=== PATIENT | male | born 1950 | race Caucasian/White ===

== ENCOUNTER 2021-03-22 06:04 | Day surgery (SDC) | payer MEDICARE, BC ==
[2021-03-17 11:03] LABS: BASOPHILS % (AUTO) 0.2 % (0-1); EOSINOPHILS # (AUTO) 0.1 X10'3 (0-0.9); LYMPHOCYTES # (AUTO) 1.6 X10'3 (1.1-4.8); LYMPHOCYTES % (AUTO) 23.1 % (21-51); MEAN CORPUSCULAR HEMOGLOBIN 30.6 PG (27.0-31.0); MEAN CORPUSCULAR VOLUME 87.4 FL (78-98); MEAN PLATELET VOLUME 7.5 FL (7.4-10.4); MONOCYTES # (AUTO) 0.6 X10'3 (0-0.9); MONOCYTES % (AUTO) 9.1 % (2-12); NEUTROPHILS # (AUTO) 4.7 X10'3 (1.8-7.7); NEUTROPHILS % (AUTO) 66.6 % (42-75); PRE OP HEMATOCRIT 39.7 % (42.0-52.0); PRE OP HEMOGLOBIN 13.9 g/dL (14.0-17.9); PRE OP PLATELET COUNT 248 X10'3 (140-440); RED BLOOD COUNT 4.54 X10'6 (4.70-6.10); RED CELL DISTRIBUTION WIDTH 12.8 % (11.5-14.5)
[2021-03-17 11:16] LABS: ALBUMIN 3.4 G/DL (3.4-5.0); ALBUMIN/GLOBULIN RATIO 0.9 (1.1-1.5); ALKALINE PHOSPHATASE 75 IU/L (46-116); BLOOD UREA NITROGEN 18 MG/DL (7-18); BUN/CREATININE RATIO 19.4 (5.4-32.0); CHLORIDE 105 MMOL/L (99-107); CREATININE 0.93 MG/DL (0.60-1.10); PRE OP ALT 31 U/L (30-65); PRE OP ANION GAP 11 (8-16); PRE OP AST 21 U/L (10-37); PRE OP BILIRUB, TOTAL 0.6 MG/DL (0.0-1.0); PRE OP GLUCOSE 101 MG/DL (70-104); PRE OP POTASSIUM 4.1 MMOL/L (3.4-5.1); PRE OP SODIUM 141 MMOL/L (135-145); TOTAL CARBON DIOXIDE 25.2 MMOL/L (24-32); TOTAL PROTEIN 7.1 G/DL (6.4-8.2); eGFR 80 ML/MIN
[2021-03-22] VITALS (7 sets, daily range): BP systolic 134–151; BP diastolic 87–99
[~2021-03-22] VITALS: Ht 172.7 cm; Wt 85.0 kg
[~2021-03-22 06:04] MED LIST: CALC-995 PO; CHOL20004 PO; ENZA40CA PO; LEUP3.753 IM; OMEG-133 PO; cefazolin/dext.iso 2gm/50ml IV ONE; famotidine 20mg tablet PO ONE; ringers solution, lacted 1,000 ML IV SCH
[2021-03-22] MEDS ORDERED: clindamycin 600mg/D5W 50ml 50 ML IV ONE (07:18)
[2021-03-22] MEDS ORDERED: proCHLORperazine 10 MG/2 ml inj IV PRN (09:00)
[2021-03-22] MEDS ORDERED: ringers solution, lacted 1,000 ML IV SCH (09:00)
[2021-03-22] MEDS ORDERED: ondansetron/PF 4mg/2ml inj IV PRN (09:00)
[2021-03-22] MEDS ORDERED: hydrALAZINE 20mg/ml inj. IV PRN (09:00)
[2021-03-22] MEDS ORDERED: labetalol 20mg/4ml (5mg/ml) syringe IV PRN (09:00)
[2021-03-22] MEDS ORDERED: morphine 4 MG/ML inj SYRINge IV PRN (09:00)
[2021-03-22] MEDS ORDERED: morphine 2 MG/ML inj. syringe IV PRN (09:00)
[2021-03-22] MEDS ORDERED: acetaminophen 1,000mg/100ml IV 100 ML IV PRN (09:00)
[2021-03-22] MEDS ORDERED: meperidine/PF 25mg/ml syringe IV PRN ×3 (09:00)
[2021-03-22] MEDS ORDERED: fentaNYL/PF 50MCG/1 ML 2ML syringe ONE (09:06)
[2021-03-22] MEDS ORDERED: midazolam 1 mg/ML 2ml injection ONE (09:07)
[2021-03-22] MEDS ORDERED: LIDOcaine 0.5% (5mg/ml) 50ml vial ONE (09:28)
[2021-03-22] MEDS ORDERED: propofol inj 20 ML IV ONE (09:28)
[2021-03-22] MEDS ORDERED: BUPIVAcaine/PF 5 mg/ml 10ml IJ ONE (09:32)
--- NOTE | 2021-03-22 09:55 | NUR ---
Received from OR via [facility], accompanied by Anesthesiologist DR. DORANTES and report given by Anesthesiolgist AND OR NURSE. PT ARRIVED AWAKE ON ROOM AIR. 22G IV TO RIGHT ARM. PT HAS LEFT HAND SPLINT WRAPPED IN ZECHARIAH BANDAIGE C/D/I. ICE PLACED BY RN ON FRONT AND BACK ON LEFT HAND. VSS. WILL CONTINUE TO MONITOR. Addendum: 03/22/21 at 1025 by Rosalinda Madrigal RN Amended: Links added.
--- NOTE | 2021-03-22 10:45 | NUR ---
ALL DISCHARGE CRITERIA HAS BEEN MET. VSS, PAIN AT A TOLERABLE LEVEL, ABLE TO SAFELY AMBULATE AND TRANSFER SELF. IV TAKEN OUT WITHOUT ANY COMPLICATIONS. DRESSING C/D/I. ALL DISCHARGE INSTRUCTIONS COVERED WITH PATIENT AND ALL QUESTIONS ANSWERED. PATIENT TAKEN OUT VIA WHEELCHAIR TO PERSONAL VEHICLE WHERE FAMILY/FRIEND DROVE PATIENT HOME. Addendum: 03/22/21 at 1058 by Rosalinda Madrigal RN Amended: Links added.
== END 2021-03-22 10:45 | disposition home or self-care (01) ==
LOC: PAS 06:04
PROVIDERS: ATTEND Orthopaedic Surgery Hand Surgery
DX: M65.342 Trigger finger, left ring finger (principal); M65.842 Other synovitis and tenosynovitis, left hand; M25.342 Other instability, left hand; Z79.899 Other long term (current) drug therapy; Z98.890 Other specified postprocedural states; Z85.46 Personal history of malignant neoplasm of prostate; Z88.0 Allergy status to penicillin; Z72.89 Other problems related to lifestyle; Z20.822 Contact with and (suspected) exposure to COVID-19
CPT/HCPCS: 26055; 26437; 26520; 36415; 80053; 82948; 85025; 93005; A6222; J2250; J2704; J3010; J3490; J7030; J7120; U0003; U0005; Z7506; Z7512; A4215; A6449; J0690